=== PATIENT | female | born 2000 | race Two or more races ===

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

== ENCOUNTER 2024-10-19 03:33 | Emergency (ER) | payer BC, MEDICAID, OTHER ==
--- NOTE | 2024-10-19 04:04 | ED.PDOC ---
Pediatric Illness HPI Chief Complaint: Shortness of Breath Comments 4-day-old female came to ER with abnormal breathing.. Patient was born at 36 weeks to a normal vaginal delivery at [facility]. Patient was just discharged yesterday. Patient on mixed breast and bottle feeding, with adequate urine output and passage of soft stools. Yesterday afternoon, noted that patient was having abnormal breathing which persisted and progressed throughout the night prompting check up. Patient saturating at 94% on room air upon arrival. Time Seen by MD: 04:02 Reviewed Notes: Nurses Notes Information Source: Relative (Mother) Mode of Arrival: Carried Prehospital Treatment: None Severity: Moderate Timing: Hours Symptoms: Dyspnea Review of Systems General: No activity change, no appetite change, no fever, no chills, no fatigue, no irritability, no decreased responsiveness HEENT: No congestion, no ear pain or tugging, no facial swelling, no rhinorrhea, no sore throat, no trouble swallowing, no drooling, no eye pain, no eye discharge, no eye redness Respiratory: Positive your irregular breathing, No cough, no stridor, no wheezing, no choking Cardiovascular: No chest pain, no cyanosis, no leg swelling, no fatigue with feeding GI: no abdominal pain, no abdominal distention, no blood in the stool, constipation, no diarrhea, no vomiting, no change in appetite : No decrease in wet diapers, no urine odor Musculoskeletal: No neck stiffness, no joint swelling, no joint stiffness Skin: no rash, no color change, no pallor, no wound, no laceration Neuro: No weakness, no confusion, no seizure Vital Signs Vital Signs Date Time Temp Pulse Resp B/P (MAP) Pulse Ox O2 Delivery O2 Flow Rate FiO2 10/19/24 04:05 98.2 149 36 94 98.2 10/19/24 04:00 Room Air 0 Physical Exam � GEN: Normal general appearance. NAD. � HEAD: NCAT. No cephalohematoma. Anterior fontanelle flat. � EENT: Normal ext ears, nose, lips. � MOUTH: Mucous membranes are moist. Normal gums, and oral mucosa � NECK: Supple. � CV: RRR, no murmurs.. Normal femoral pulses. � LUNGS: Clear to auscultation bilaterally. Normal cry. No respiratory distress. No wheezing or stridor. Some normal periodic breathing noted. � ABD: Soft, nontender, normal bowel sounds, no masses or organomegaly. Normal umbilical stump without surrounding erythema. � SKIN: Warm, pink, well perfused. Mild jaundice of the face. � MSK: Normal extremities. No hip clicks or clunks. No clavicular fracture. � NEURO: Moving all extremities spontaneously. Normal muscle tone. Past Medical History Pediatric Medical History: weight Pediatric Medical History (Oth: Born at 36 weeks to a via vaginal delivery Immunizations: Not current: Medical History: Prematurity Operations: Denies Family History Family History: Reviewed,noncontributory to illness Social History Smoking: Non-Smoker Alcohol: Denies ETOH Use Drugs: Denies Drug Use Lives In: Home Was a procedure done? Was a procedure done?: No Pediatric Differential Dx Pediatric Differential Dx: Bronchitis, Dehydration, Electrolyte disorder, Hypoxemia, Influenza, Meningitis, Pharyngitis, Pneumonia, Sepsis, URI, Viral exanthem, Viral Syndrome, Other X-Ray, Labs, Meds, VS Vital Signs Date Time Temp Pulse Resp B/P (MAP) Pulse Ox O2 Delivery O2 Flow Rate FiO2 10/19/24 04:05 98.2 149 36 94 98.2 10/19/24 04:00 36 Room Air 0 10/19/24 04:00 140 20 98 Time of 1ST Reevaluation: 03:58 Reevaluation 1ST: Unchanged Patient Education/Counseling: Need For Follow Up Family Education/Counseling: Need For Follow Up Departure 1 Departure Time of Disposition: 04:04 Impression: Primary Impression: Well child check, under 8 days old Disposition: 01 HOME / SELF CARE / HOMELESS Condition: Stable Additional Instructions: ED DISCHARGE INSTRUCTIONS Instructions: Please read all instructions carefully provided in this packet. Although your child has been discharged from the Emergency Department, this does not mean that they have a "clean bill of health". No definitive diagnosis for your child's symptoms has been made today. It is possible that your child is in the process of developing a serious illness. This it why you must return to the emergency department immediately without fail if any new or worsening symptoms (especially if symptoms include coughing, wheezing, pale or blue skin, trouble breathing, abdominal is distended, fever, low energy, not moving around as usual, not feeding, trouble feeding, decreased wet diapers, decreased bowel movements) It is also very important that you keep the appointment on Monday with [facility] nursing department chairperson as scheduled. If you are unable to get an appointment, return to the ED for follow up. Learning About Periodic Breathing in Infants Some babies can take a pause in their breathing for up to 10 seconds or a few seconds longer. Their next few breaths may be fast and shallow. Then they breathe steadily again. This is called periodic breathing. It is a harmless condition in premature and full-term babies. What can you expect when your has it? Your baby may have periodic breathing when he or she is sleeping. It happens less often as your grows. The condition should stop by the time your baby is 6 months old. How can you treat it? Periodic breathing is normal and doesn't need treatment. Follow the doctor's guidance for safe sleeping. For example, place your baby to sleep on his or her back. When should you call for help? Call 911 anytime you think your child may need emergency care. For example, call if: Your child stops breathing, turns blue, or becomes unconscious. Start rescue breathing or follow instructions given by emergency services while you wait for help. Your child has severe trouble breathing. Signs may include the chest sinking in, using belly muscles to breathe, or nostrils flaring while your child is struggling to breathe. Call your doctor now or seek immediate medical care if: Your child is rarely awake and does not wake up for feedings, is very fussy, seems too tired to eat, or is not interested in eating. Watch closely for changes in your child's health, and be sure to contact your do ctor if: Your child does not get better as expected. Follow-up care is a palacio part of your child's treatment and safety. Be sure to make and go to all appointments, and call your doctor if your child is having problems. It's also a good idea to know your child's test results and keep a list of the medicines your child takes. Your baby may need medical care if they have any of these signs. Call your baby's doctor if you have any questions. Call the doctor now or call 911 or come to the emergency department if your baby: Has a rectal temperature that is less than 97.5�F or is 100.4�F or higher. Seems hot, but you can't take their temperature. Has no wet diapers for 6 hours. Has a yellow tint to their eyes or skin. To check the skin, gently press on their nose or forehead. Has pus or reddish skin on or around the umbilical cord. Has trouble breathing (for example, breathing faster than usual). Cries in an unusual way or for an unusual length of time. Is rarely awake. Does not wake up for feedings, seems too tired to eat, or isn't interested in eating. Is very fussy. Seems sick. Is not having regular bowel movements. Discharged With: Significant Other Comments Patient observed in the emergency department with normal oxygen saturation ranging between 94-98% on room air. No respiratory distress. Patient is afebrile. No concerning exam findings. Mother reports patient has been feeding normally, normal energy level, normal wet diapers and bowel movements. Mother has upcoming appointment on Monday with the nursing department chairperson. Mother advised to keep appointment or return to the emergency department sooner for any concerning symptoms. Critical Care Note Critical Care Time?: No Stability Stability form required: No I personally scribed for MISTY SOSA MD ([email or web address]) on 10/19/24 at 04:04. Electronically submitted by Yoel Solorzano ([email or web address]). MISTY SOSA MD October 19, 2024 04:04
[2024-10-19 04:05] VITALS: PULSE 149; RESP 36; TEMP 98.2; O2SAT 94
== END 2024-10-19 04:55 | disposition home or self-care (01) ==
LOC: ER 03:33
DX: Z00.110 Health examination for newborn under 8 days old (principal)